=== PATIENT | male | born 1940 | race Caucasian/White ===

== ENCOUNTER 2024-08-19 17:21 | Emergency (ER) | payer OTHER ==
[2024-08-19 17:40] VITALS: BP 165/78; PULSE 74; RESP 16; TEMP 98; BMI 30.7
[2024-08-19] MEDS ORDERED: DIPHTH,PERTUSS(ACELL),TET 0.5 ML DISP.SYRIN IM ONE (17:55)
[2024-08-19] MEDS: DIPHTH,PERTUSS(ACELL),TET 0.5 ML DISP.SYRIN IM ONE (17:58)
== END 2024-08-19 18:00 | disposition home or self-care (01) ==
LOC: FER 17:21
DX: S61.302A Unspecified open wound of right middle finger with damage to nail, initial encounter (principal); W26.0XXA Contact with knife, initial encounter
CPT/HCPCS: 99283-25